=== PATIENT | female | born 1955 | race Caucasian/White ===

== ENCOUNTER 2024-06-18 15:28 | Emergency (ER) | payer MEDICARE, OTHER ==
[2024-06-18 17:11] VITALS: TEMP 97.7
[2024-06-18 19:05] LABS: Appearance Clear (Clear); Bacteria None Seen /HPF (None Seen); Bilirubin Negative (Negative); Blood Negative (Negative); Epithelial Cells None Seen /HPF (None Seen); Glucose, Urine Negative (Negative); Hyaline Casts NONE SEEN /LPF (0-2); Ketones Negative (Negative); Leukocyte Esterase Trace (Negative); Nitrite Negative (Negative); Protein,Urine Dip Negative (Negative); RBC 0-2 /HPF (0-5); Urobilinogen 0.2 mg/dL (0.2); WBC 0-2 /HPF (0-5)
[2024-06-18 19:07] LABS: ADD URINE CULTURE? NO (NO)
--- NOTE | 2024-06-18 19:15 | ERPHSYRPT ---
- History of Present Illness Time Seen by Provider: 06/18/24 18:30 Source: patient Exam Limitations: no limitations Patient Subjective Stated Complaint: PT HERE FOR GROIN PAIN TO RIGHT GROIN AREA, SHE STATES IT RADIATES FROM LOWER BACK TO GROIN, HAS CHRONIC BACK PAIN AND WAS SEEN AT [facility] TUESDAY FOR SAME THING Triage Nursing Assessment: PT ARRIVED PER WC, ABLE TO UNDRESS AND WALK TO CART, ALERT, RESP EASY, SKIN W/D/P, MOVES ALL EXT WELL, NO EDEMA NOTED, Physician History: This is a 68-year-old white female patient brought into the emergency department by private vehicle escorted by her spouse secondary to sciatica pain on the right side and associated sharp stabbing right groin pain. Patient had this similar symptoms a few days ago and was seen at [facility] and sent home. Patient has a primary physician who is Dr. Louis He out of [facility]. She does not see a pain specialist. She does have neurology appointment on 06/22/2024. Patient does take [place] 10/325 chronically for known chronic back pain and chronic recurring sciatica. Her last dose was 6 hours prior to arrival. The patient did not suffer any acute fall or traumatic injury. Patient has no chest pain and she has no shortness of breath. Timing/Duration: week(s) (1), worse Method of Injury: bending, twisted, turning Quality: sharp, stabbing Back Pain Location: lumbar spine Back Pain Radiation: upper legs (Right side posteriorly) Severity of Pain-Max: moderate Severity of Pain-Current: moderate Modifying Factors: Improves With: movement Associated Symptoms: denies symptoms, lower back pain, muscle spasms, No urinary incontinence, No problems urinating, No numbness in legs/feet, No sensory/motor loss Previous symptoms: same symptoms as today, recently seen, recently treated Allergies/Adverse Reactions: adhesive Allergy (Verified 06/18/24 17:32) ceftriaxone Allergy (Verified 06/18/24 17:32) cilostazol Allergy (Verified 06/18/24 17:32) codeine Allergy (Verified 06/18/24 17:32) dapagliflozin [From Farga] Allergy (Verified 06/18/24 17:32) duloxetine Allergy (Verified 06/18/24 17:32) Iodinated Contrast Media Allergy (Verified 06/18/24 17:32) iohexol Allergy (Verified 06/18/24 17:32) meperidine [From Demerol] Allergy (Verified 06/18/24 17:32) propoxyphene Allergy (Verified 06/18/24 17:32) Sulfa (Sulfonamide Antibiotics) Allergy (Verified 06/18/24 17:32) topiramate Allergy (Verified 06/18/24 17:32) Hx Tetanus, Diphtheria Vaccination/Date Given: No Hx Influenza Vaccination/Date Given: No Hx Pneumococcal Vaccination/Date Given: Yes Immunizations Up to Date: Yes Travel Risk - International Travel Have you traveled outside of the country in past 3 weeks: No - Emerging Infectious Disease Are you exhibiting symptoms associated with any current EIDs: No - Review of Systems Constitutional: No Symptoms Eyes: No Symptoms Ears, Nose, & Throat: No Symptoms Respiratory: No Symptoms Cardiac: No Symptoms Abdominal/Gastrointestinal: No Symptoms Genitourinary Symptoms: Other (Sharp right groin pain) Musculoskeletal: Back Pain (Right side lumbar level shooting caudally down buttock and proximal posterior right upper leg), No Fall Skin: No Symptoms Neurological: No Symptoms Psychological: No Symptoms Endocrine: No Symptoms Hematologic/Lymphatic: No Symptoms Immunological/Allergic: No Symptoms All Other Systems: Reviewed and Negative - Past Medical History Neurological History: Migraines Cardiac History: Hypertension Musculoskeletal History: Arthritis GI Medical History: Crohns Disease, GERD Psycho-Social History: Anxiety, Depression Other Medical History: CHRONIC BACK PAIN - Past Surgical History Past Surgical History: Yes Gastrointestinal: Appendectomy Female Surgical History: Hysterectomy, Section - Social History Smoking Status: Current some day smoker How long have you smoked: 1/2 Exposure to second hand smoke: Yes Drug Use: none - Social Determinants of Health Will the patient participate in the screening: Yes Do you worry about a steady place to live?: No Do you have any problems with any of the following?: No known problems In the past 12 months,have you had to go without utilities?: No Transportation Issues: No Has anyone in your support network made you feel unsafe?: No Have you or anyone in your house had to go without enough: No - Nursing Vital Signs Nursing Vital Signs: Initial Vital Signs Temperature 97.7 F 06/18/24 17:11 Pulse Rate 70 06/18/24 17:11 Respiratory Rate 18 06/18/24 17:11 Blood Pressure 155/94 06/18/24 17:11 O2 Sat by Pulse Oximetry 98 06/18/24 17:11 Pain Scale Pain Intensity [Right] 8 Pain Intensity 9 - Physical Exam General Appearance: no apparent distress, alert, anxiety Eye Exam: PERRL/EOMI, eyes nml inspection Ears, Nose, Throat Exam: normal ENT inspection, moist mucous membranes Neck Exam: normal inspection, non-tender, supple, full range of motion Respiratory Exam: normal breath sounds, lungs clear, No chest tenderness, No respiratory distress Cardiovascular Exam: regular rate/rhythm, normal heart sounds, normal peripheral pulses Gastrointestinal Exam: soft, normal bowel sounds, No tenderness Pelvic Exam: other (Right groin localized tenderness. No inguinal hernia) Rectal Exam: not done Back Exam: normal inspection, normal range of motion, CVA tenderness, decreased range of motion, muscle spasm, No vertebral tenderness Extremity Exam: normal inspection, normal range of motion, pelvis stable Neurologic Exam: alert, oriented x 3, cooperative, medical coding auditor II-XII nml as tested, normal mood/affect, nml cerebellar function, sensation nml Skin Exam: normal color, warm, dry Lymphatic Exam: No adenopathy SpO2 Interpretation: normal SpO2: 98 O2 Delivery: Room Air Ordered Tests: Active Orders 24 hr Category Date Time Status ABDOMEN AND PELVIS W/0 CONTRAS [CT] Stat Exams 06/18/24 18:55 Taken UA W/RFX UR CULTURE Stat Lab 06/18/24 18:30 Completed Medication Summary Discontinued Medications Generic Name Dose Route Start Last Admin Trade Name Gregoryq PRN Reason Stop Dose Admin Methylprednisolone Sodium 0 mg 06/18/24 18:57 06/18/24 19:59 Succinate 125 mg/ Sterile IM 06/18/24 18:58 125 mg Water 2 ml STAT ONE Administration Hydromorphone HCl 0.5 mg 06/18/24 18:56 06/18/24 19:54 Hydromorphone 1 Mg/1ml Inj IM 06/18/24 18:57 0.5 mg STAT ONE Administration Hydromorphone HCl Confirm 06/18/24 19:45 Hydromorphone 1 Mg/1ml Inj Administered 06/18/24 19:46 Dose 1 mg .ROUTE .STK-MED ONE Methylprednisolone Sodium Succinate Confirm 06/18/24 19:45 Methylprednis Sod Succ 125 Mg/2 Ml Vial Administered 06/18/24 19:46 Dose 125 mg .ROUTE .STK-MED ONE Ondansetron HCl 4 mg 06/18/24 18:58 06/18/24 19:52 Zofran 4 Mg/Udtablet Orally Disintegrating PO 06/18/24 18:59 4 mg STAT ONE Administration Ondansetron HCl Confirm 06/18/24 19:45 Zofran 4 Mg/Udtablet Orally Disintegrating Administered 06/18/24 19:46 Dose 4 mg .ROUTE .STK-MED ONE Orphenadrine Citrate 60 mg 06/18/24 18:57 06/18/24 19:57 Orphenadrine Citrate 60 Mg/2 Ml Vial IM 06/18/24 18:58 60 mg STAT ONE Administration Orphenadrine Citrate Confirm 06/18/24 19:45 Orphenadrine Citrate 60 Mg/2 Ml Vial Administered 06/18/24 19:46 Dose 60 mg .ROUTE .STK-MED ONE Sterile Water Confirm 06/18/24 19:45 Water For Injection,Sterile 10 Ml Vial Administered 06/18/24 19:46 Dose 10 ml IJ .STK-MED ONE Lab/Rad Data: Laboratory Results 06/18/24 Range/Units 18:30 Urine Color Yellow (Yellow) Urine Appearance Clear (Clear) Urine pH 6.0 (4.6-8.0) Ur Specific [place] 1.010 (1.005-1.030) Urine Protein Negative (Negative) Urine Glucose (UA) Negative (Negative) mg/dL Urine Ketones Negative (Negative) Urine Blood Negative (Negative) Urine Nitrite Negative (Negative) Urine Bilirubin Negative (Negative) Urine Urobilinogen 0.2 (0.2) mg/dL Ur Leukocyte Esterase Trace A (Negative) U Hyaline Cast (Auto) NONE SEEN (0-2) /LPF Urine Microscopic RBC 0-2 (0-5) /HPF Urine Microscopic WBC 0-2 (0-5) /HPF Ur Epithelial Cells None Seen (None Seen) /HPF Urine Bacteria None Seen (None Seen) /HPF Urine Culture Reflexed NO (NO) - Progress Progress: improved, pain not gone completely Progress Note: 06/18/24 19:12 My medical decision in the assignment of moderate complexity to this patient's medical issue today is based on review of the patient's past medical history, review of patient medication list, reviewed patient drug allergy list, history present illness and physical findings on examination. The workup in this patient will include urinalysis, CT scan of the abdomen pelvis without contrast. Differential diagnosis includes but is not limited to sciatica, urinary tract infection, acute lumbar spine or pelvic fracture, acute exacerbation of chronic low back pain 06/18/24 21:07 I interpreted the patient's laboratory data results. There is no evidence of any acute, emergent medical issue based on the laboratory data results. CT scan of the head without contrast was interpreted by the radiologist and I reviewed the impression. The impression states no comparison films available. Mild diffuse fecal stasis. Moderate L2-L4 degenerative disc disease. No mention of any bony fractures or inguinal hernias. 06/18/24 21:09 The patient complained about itchiness in the injection site of the steroid injection. No evidence of any cellulitis, infection or rash. She also complained of eyelids seem to be drooping. I performed a neurologic examination. There is nothing focal and eyelids bilaterally are symmetric. Counseled pt/family regarding: lab results, diagnosis, need for follow-up, rad results Medical Desision Making - Independent Historian Additional History obtained from: Spouse - Diagnostic Testing Diagnostic test were ordered, analyzed, and reviewed by me: Yes Radiological Interpretation: Reviewed by me, Teleradiologist Report - Risk of complications The pt has a mod risk of morbidity or mortality based on: Need for prescription drug management - Departure Departure Disposition: Home Clinical Impression: Sciatica, Right groin pain Condition: Stable Critical Care Time: No Referrals: LOUIS HE MD [Primary Care Provider] - Follow up/PCP as directed Additional Instructions: Continue your [place] medication as prescribed. Call your primary care provider tomorrow morning, 06/19/2024 to make arrangements for follow-up appointment to be seen in next 3 to 5 days. Keep your appointment with your neurologist. Take your other medications as prescribed. Prescriptions: Prednisone 10 mg [Deltasone 10 mg] 10 mg PO TID #12 tablet Orphenadrine Citrate 100 mg [Norflex 100 MG Tablet] 100 mg PO BID #6 tab
[2024-06-18] MEDS ORDERED: ZOFRAN ODT 4 MG ONE (19:45)
[2024-06-18] MEDS ORDERED: Norflex 60 MG/2 ML ONE (19:45)
[2024-06-18] MEDS ORDERED: Sterile H2O 10 ml IJ ONE (19:45)
[2024-06-18] MEDS ORDERED: solu-MEDROL ONE (19:45)
[2024-06-18] MEDS ORDERED: Hydromorphone 1 mg/ml Injection ONE (19:45)
[2024-06-18] MEDS: ZOFRAN ODT 4 MG PO ONE (19:52)
[2024-06-18] MEDS: Hydromorphone 1 mg/ml Injection IM ONE (19:54)
[2024-06-18] MEDS: Norflex 60 MG/2 ML IM ONE (19:57)
[2024-06-18] MEDS: solu-MEDROL 125 MG, Sterile H2O 10 ml 2 ML IM ONE (19:59)
[2024-06-18 20:04] VITALS: RESP 22
[2024-06-18 21:16] VITALS: O2SAT 98
[2024-06-18 21:38] VITALS: BP 144/76; PULSE 76
--- NOTE | 2024-06-19 08:41 | XRAY ---
Indication: Right lower quadrant/right groin pain. Multiple contiguous axial images obtained through the abdomen and pelvis without contrast. Comparison: None Lung bases clear. Heart not enlarged. Noncontrasted stomach and bowel loops appear nonobstructed. Mild diffuse scattered colonic fecal debris. Appendectomy and hysterectomy reported. No free fluid/air. Remaining liver, gallbladder, pancreas, spleen, adrenal glands, kidneys, ureters, and bladder are unremarkable for noncontrast exam. Minimal aortic calcifications without AAA. 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 No ventral or inguinal hernias. Impression: 1. Mild diffuse fecal stasis without obstruction. 2. Chronic findings including arteriosclerotic disease and chronic bony findings. 3. Remaining CT abdomen/pelvis without contrast exam is negative.
== END 2024-06-18 21:38 | disposition home or self-care (01) ==
LOC: ED 15:28
DX: M54.31 Sciatica, right side (principal); R10.2 Pelvic and perineal pain; I10 Essential (primary) hypertension; Z79.891 Long term (current) use of opiate analgesic; Z79.52 Long term (current) use of systemic steroids; Z79.899 Other long term (current) drug therapy; Z72.0 Tobacco use
CPT/HCPCS: 74176; 81001; 96372; 99284; J1170; J2360; J2919; Q0162

== ENCOUNTER 2024-07-03 17:43 | Emergency (ER) | payer MEDICARE, OTHER ==
--- NOTE | 2024-07-03 19:14 | ERPHSYRPT ---
- History of Present Illness Time Seen by Provider: 07/03/24 19:11 Source: patient Exam Limitations: no limitations Physician History: 68-year-old female history of total hysterectomy presents to emergency department for evaluation of right lower quadrant pain. Patient states the pain radiates into her groin. She also feels it in her back. Patient has a history of back pain and sciatica. Patient states the pain tends to move around from her back to her flank to her groin. No trauma no fever. No change in bowel bladder function. Symptoms are mild to moderate in intensity. Palpation to the right lower quadrant reproduces pain. Pain improved with rest. Patient voices no other complaints or concerns at this time. Portions of this note were created with voice recognition technology. There may be grammatical, spelling, punctuation or sound alike errors Timing/Duration: today Severity: moderate Modifying Factors: Improves With: nothing Associated Symptoms: denies symptoms Allergies/Adverse Reactions: adhesive Allergy (Verified 07/03/24 18:50) ceftriaxone Allergy (Verified 07/03/24 18:50) cilostazol Allergy (Verified 07/03/24 18:50) codeine Allergy (Verified 07/03/24 18:50) dapagliflozin [From Farxiga] Allergy (Verified 07/03/24 18:50) duloxetine Allergy (Verified 07/03/24 18:50) Iodinated Contrast Media Allergy (Verified 07/03/24 18:50) iohexol Allergy (Verified 07/03/24 18:50) meperidine [From Demerol] Allergy (Verified 07/03/24 18:50) propoxyphene Allergy (Verified 07/03/24 18:50) Sulfa (Sulfonamide Antibiotics) Allergy (Verified 07/03/24 18:50) topiramate Allergy (Verified 07/03/24 18:50) Hx Tetanus, Diphtheria Vaccination/Date Given: No Hx Influenza Vaccination/Date Given: No Hx Pneumococcal Vaccination/Date Given: Yes Travel Risk - Emerging Infectious Disease Are you exhibiting symptoms associated with any current EIDs: No - Review of Systems Constitutional: No Symptoms, No Fever, No Chills Eyes: No Symptoms Ears, Nose, & Throat: No Symptoms Respiratory: No Symptoms, No Cough, No Dyspnea Cardiac: No Symptoms, No Chest Pain, No Edema, No Syncope Abdominal/Gastrointestinal: No Symptoms, No Abdominal Pain, No Nausea, No Vomiting, No Diarrhea Genitourinary Symptoms: No Symptoms, No Dysuria Musculoskeletal: No Symptoms, No Back Pain, No Neck Pain Skin: No Symptoms, No Rash Neurological: No Symptoms, No Dizziness, No Focal Weakness, No Sensory Changes Psychological: No Symptoms Endocrine: No Symptoms Hematologic/Lymphatic: No Symptoms Immunological/Allergic: No Symptoms All Other Systems: Reviewed and Negative - Past Medical History Neurological History: Migraines Cardiac History: Hypertension Musculoskeletal History: Arthritis GI Medical History: Crohns Disease, GERD Psycho-Social History: Anxiety, Depression Other Medical History: CHRONIC BACK PAIN - Past Surgical History Past Surgical History: Yes Gastrointestinal: Appendectomy Female Surgical History: Hysterectomy, Section - Social History Smoking Status: Current some day smoker How long have you smoked: 1/2 Exposure to second hand smoke: Yes Drug Use: none - Social Determinants of Health Will the patient participate in the screening: Yes Do you worry about a steady place to live?: No In the past 12 months,have you had to go without utilities?: No Transportation Issues: No Has anyone in your support network made you feel unsafe?: No Have you or anyone in your house had to go without enough: No - Nursing Vital Signs Nursing Vital Signs: Initial Vital Signs Temperature 98.1 F 07/03/24 18:45 Pulse Rate 73 07/03/24 18:45 Respiratory Rate 18 07/03/24 18:45 Blood Pressure 178/71 07/03/24 18:45 O2 Sat by Pulse Oximetry 96 07/03/24 18:45 Pain Scale Pain Intensity 7 - Physical Exam General Appearance: no apparent distress, alert Eye Exam: PERRL/EOMI, eyes nml inspection Ears, Nose, Throat Exam: normal ENT inspection, pharynx normal, moist mucous membranes Neck Exam: normal inspection, full range of motion Respiratory Exam: normal breath sounds, lungs clear, airway intact, No respiratory distress Cardiovascular Exam: regular rate/rhythm, normal heart sounds, normal peripheral pulses Gastrointestinal/Abdomen Exam: soft, normal bowel sounds, No tenderness, No mass Back Exam: normal inspection, normal range of motion, other (Tenderness to palpation lumbar spine), No CVA tenderness, No vertebral tenderness Extremity Exam: normal inspection, normal range of motion, pelvis stable Neurologic Exam: alert, oriented x 3, cooperative, normal mood/affect, sensation nml, No motor deficits Skin Exam: normal color, warm, dry, No rash Lymphatic Exam: No adenopathy SpO2 Interpretation: normal SpO2: 96 O2 Delivery: Room Air - Course Nursing assessment & vital signs reviewed: Yes - CT Exams Abdomen/Pelvis CT Interpretation: Tele-radiologist Report (Moderate diffuse fecal stasis, degenerative disc disease mild dextroscoliosis) Ordered Tests: Active Orders 24 hr Category Date Time Status ABDOMEN AND PELVIS W/0 CONTRAS [CT] Stat Exams 07/03/24 19:09 Taken RECONSTRUCTION [CT] Stat Exams 07/03/24 19:10 Taken CBC W DIFF Stat Lab 07/03/24 19:50 Completed CMP Stat Lab 07/03/24 19:50 Completed CULTURE,URINE Stat Lab 07/03/24 19:09 Received TROPONIN Q4H Lab 07/03/24 19:50 Completed TROPONIN Q4H Lab 07/03/24 23:46 Completed TROPONIN Q4H Lab 07/04/24 03:15 Ordered UA W/RFX UR CULTURE Stat Lab 07/03/24 19:09 Completed Medication Summary Discontinued Medications Generic Name Dose Route Start Last Admin Trade Name Kathy PRN Reason Stop Dose Admin Acetaminophen 650 mg 07/03/24 23:31 07/03/24 23:35 Acetaminophen 325 Mg Tablet PO 07/03/24 23:32 650 mg STAT STA Administration Acetaminophen Confirm 07/03/24 23:34 Acetaminophen 325 Mg Tablet Administered 07/03/24 23:35 Dose 650 mg .ROUTE .STK-MED ONE Acetaminophen Confirm 07/03/24 23:40 Acetaminophen 325 Mg Tablet Administered 07/03/24 23:41 Dose 650 mg .ROUTE .STK-MED ONE Ketorolac Tromethamine 30 mg 07/03/24 22:04 07/03/24 22:33 Ketorolac Tromethamine 30 Mg/Ml Inj IV 07/03/24 22:05 Not Given STAT ONE Ketorolac Tromethamine Confirm 07/03/24 22:12 Ketorolac Tromethamine 30 Mg/Ml Inj Administered 07/03/24 22:13 Dose 30 mg .ROUTE .STK-MED ONE Ketorolac Tromethamine 30 mg 07/03/24 22:17 07/03/24 22:21 Ketorolac Tromethamine 30 Mg/Ml Inj IM 07/03/24 22:18 30 mg STAT ONE Administration Morphine Sulfate 4 mg 07/03/24 20:57 07/03/24 21:03 Morphine Sulfate 4 Mg/Ml Injection IV 07/03/24 20:58 4 mg STAT ONE Administration Morphine Sulfate Confirm 07/03/24 21:02 Morphine Sulfate 4 Mg/Ml Injection Administered 07/03/24 21:03 Dose 4 mg .ROUTE .STK-MED ONE Morphine Sulfate 2 mg 07/03/24 23:22 07/03/24 23:33 Morphine Sulfate 2 Mg/Ml Inj IV 07/03/24 23:23 Not Given STAT ONE Nitrofurantoin Macrocrystals 100 mg 07/03/24 20:36 07/03/24 20:45 Nitrofurantoin Macro 100 Mg Capsule PO 07/03/24 20:37 100 mg STAT ONE Administration Nitrofurantoin Macrocrystals Confirm 07/03/24 20:44 Nitrofurantoin Macro 100 Mg Capsule Administered 07/03/24 20:45 Dose 100 mg .ROUTE .STK-MED ONE Ondansetron HCl 4 mg 07/03/24 20:59 07/03/24 21:03 Ondansetron Hcl 4 Mg/2 Ml Vial IV 07/03/24 21:00 4 mg STAT ONE Administration Ondansetron HCl Confirm 07/03/24 21:02 Ondansetron Hcl 4 Mg/2 Ml Vial Administered 07/03/24 21:03 Dose 4 mg .ROUTE .STK-MED ONE Lab/Rad Data: Laboratory Result Diagrams 07/03/24 19:50 07/03/24 19:50 Laboratory Results 07/03/24 07/03/24 07/03/24 Range/Units 23:46 19:50 19:50 WBC (3.98-10.04) x10^3/uL RBC (3.93-5.22) x10^6/uL Hgb (11.2-15.7) g/dL Hct (34.1-44.9) % MCV (79.4-94.8) fL MCH (25.6-32.2) pg MCHC (32.2-35.5) g/dL RDW (11.7-14.4) % Plt Count (182-369) x10^3/uL MPV (9.4-12.3) fL Gran % (34.0-71.1) % Immature Gran % (Auto) (0.001-0.429) % Nucleat RBC Rel Count (0.00-0.2) % Eos # (Auto) (0.04-0.36) x10^3/uL Immature Gran # (Auto) (0.001-0.031) x10^3u/L Absolute Lymphs (auto) (1.18-3.74) x10^3/uL Absolute Monos (auto) (0.24-0.86) x10^3/uL Absolute Nucleated RBC (0.00-0.012) x10^3u/L Lymphocytes % (19.3-51.7) % Monocytes % (4.7-12.5) % Eosinophils % (0.7-5.8) % Basophils % (0.1-1.2) % Absolute Granulocytes (1.56-6.13) x10^3/uL Basophils # (0.01-0.08) x10^3/uL Sodium 144 (135-145) mmol/L Potassium 3.5 (3.5-5.1) mmol/L Chloride 104 (98-107) mmol/L Carbon Dioxide 33 H (22-30) mmol/L Anion Gap 9.7 (5-15) MEQ/L BUN 17 (7-17) mg/dL Creatinine 0.57 (0.52-1.04) mg/dL Estimated GFR 100.2 ML/MIN Glucose 113 H (74-106) mg/dL Calcium 9.3 (8.4-10.2) mg/dL Total Bilirubin 0.30 (0.2-1.3) mg/dL AST 28 (14-36) U/L ALT 26 (0-35) U/L Alkaline Phosphatase 47 (38-126) U/L Troponin I < 0.012 < 0.012 (0.000-0.033) ng/mL Serum Total Protein 7.1 (6.3-8.2) g/dL Albumin 4.2 (3.5-5.0) g/dL Urine Color (Yellow) Urine Appearance (Clear) Urine pH (4.6-8.0) Ur Specific [place] (1.005-1.030) Urine Protein (Negative) Urine Glucose (UA) (Negative) mg/dL Urine Ketones (Negative) Urine Blood (Negative) Urine Nitrite (Negative) Urine Bilirubin (Negative) Urine Urobilinogen (0.2) mg/dL Ur Leukocyte Esterase (Negative) U Hyaline Cast (Auto) (0-2) /LPF Urine Microscopic RBC (0-5) /HPF Urine Microscopic WBC (0-5) /HPF Ur Epithelial Cells (None Seen) /HPF Urine Bacteria (None Seen) /HPF Urine Culture Reflexed (NO) 07/03/24 07/03/24 Range/Units 19:50 19:09 WBC 10.8 H (3.98-10.04) x10^3/uL RBC 4.10 (3.93-5.22) x10^6/uL Hgb 12.8 (11.2-15.7) g/dL Hct 41.3 (34.1-44.9) % MCV 100.7 H (79.4-94.8) fL MCH 31.2 (25.6-32.2) pg MCHC 31.0 L (32.2-35.5) g/dL RDW 14.1 (11.7-14.4) % Plt Count 304 (182-369) x10^3/uL MPV 8.8 L (9.4-12.3) fL Gran % 45.4 (34.0-71.1) % Immature Gran % (Auto) 0.6 H (0.001-0.429) % Nucleat RBC Rel Count 0.0 (0.00-0.2) % Eos # (Auto) 0.17 (0.04-0.36) x10^3/uL Immature Gran # (Auto) 0.06 H (0.001-0.031) x10^3u/L Absolute Lymphs (auto) 4.70 H (1.18-3.74) x10^3/uL Absolute Monos (auto) 0.90 H (0.24-0.86) x10^3/uL Absolute Nucleated RBC 0.00 (0.00-0.012) x10^3u/L Lymphocytes % 43.6 (19.3-51.7) % Monocytes % 8.3 (4.7-12.5) % Eosinophils % 1.6 (0.7-5.8) % Basophils % 0.5 (0.1-1.2) % Absolute Granulocytes 4.91 (1.56-6.13) x10^3/uL Basophils # 0.05 (0.01-0.08) x10^3/uL Sodium (135-145) mmol/L Potassium (3.5-5.1) mmol/L Chloride (98-107) mmol/L Carbon Dioxide (22-30) mmol/L Anion Gap (5-15) MEQ/L BUN (7-17) mg/dL Creatinine (0.52-1.04) mg/dL Estimated GFR ML/MIN Glucose (74-106) mg/dL Calcium (8.4-10.2) mg/dL Total Bilirubin (0.2-1.3) mg/dL AST (14-36) U/L ALT (0-35) U/L Alkaline Phosphatase (38-126) U/L Troponin I (0.000-0.033) ng/mL Serum Total Protein (6.3-8.2) g/dL Albumin (3.5-5.0) g/dL Urine Color Yellow (Yellow) Urine Appearance Clear (Clear) Urine pH 6.5 (4.6-8.0) Ur Specific [place] 1.015 (1.005-1.030) Urine Protein Negative (Negative) Urine Glucose (UA) Negative (Negative) mg/dL Urine Ketones Negative (Negative) Urine Blood Negative (Negative) Urine Nitrite Negative (Negative) Urine Bilirubin Negative (Negative) Urine Urobilinogen 0.2 (0.2) mg/dL Ur Leukocyte Esterase Moderate A (Negative) U Hyaline Cast (Auto) NONE SEEN (0-2) /LPF Urine Microscopic RBC 0-2 (0-5) /HPF Urine Microscopic WBC 11-20 A (0-5) /HPF Ur Epithelial Cells Rare (None Seen) /HPF Urine Bacteria None Seen (None Seen) /HPF Urine Culture Reflexed YES (NO) - Progress Progress: improved Progress Note: 68-year-old female presents to our ED for evaluation of right lower abdominal pa in and back pain. Physical exam reveals right lower quadrant tenderness. Patient advised that she has had a total hysterectomy as well as an appendectomy. Pain described as an ache that is localized. No radiation. Physical exam reveals tenderness to palpation at the right lower quadrant and tenderness to palpation at the lumbar spine. No trauma no fever. CT abdomen pelvis negative for acute intra-abdominal pathology. UA reveals urinary tract infection. Pain medication administered. Pain resolved. Patient requesting discharge. No indication for further workup. Patient has a follow-up appointment scheduled with her primary care doctor this week. at bedside. They voiced no other complaints concerns at this time. Portions of this note were created with voice recognition technology. There may be grammatical, spelling, punctuation or sound alike errors Complexity problem addressed is moderate acute complicated. No critical care time. Complex of data reviewed and analyzed is moderate. Test ordered test reviewed results analyzed and correlated clinically with history and physical exam. Risk of complication and or risk of morbidity/mortality of patient manage ment is moderate. A prescription for Macrobid forwarded to patient's pharmacy. Vital stable. Time spent to discharge patient approximately 20 minutes. Plan of care established for shared decision making. No social determinants of health present to impede follow-up. Portions of this note were created with voice recognition technology. There may be grammatical, spelling, punctuation or sound alike errors 07/04/24 01:48 Counseled pt/family regarding: lab results, diagnosis, rad results - Departure Departure Disposition: Home Clinical Impression: UTI (urinary tract infection), Abdominal pain, Back pain, Fecal stasis, Degenerative disc disease Condition: Stable Critical Care Time: No Referrals: ADRIENNE RICO MD [Primary Care Provider] - Follow up/PCP as directed Instructions: Abdominal Pain, Adult ED, Urinary Tract Infection, Adult ED Additional Instructions: Discharge/Care Plan MARILYN LEWIS was seen on 07/04/24 in the Emergency Room. The patient was counseled regarding Diagnosis,Lab results, Imaging studies, need for follow up and when to return to the Emergency Room. Prescriptions given: Discharge Note I have spoken with the patient and/or caregivers. I have explained the patient's condition, diagnosis and treatment plan based on the information available to me at this time. I have answered the patient's and/or caregiver's questions and addressed any concerns. The patient and/or caregivers have as good understanding of the patient's diagnosis, condition and treatment plan as can be expected at this point. The vital signs have been stable. The patient's condition is stable and appropriate for discharge from the emergency department. The patient will pursue further outpatient evaluation with the primary care physician or other designated or consulting physician as outlined in the discharge instructions. The patient and/or caregivers are agreeable to this plan of care and follow-up instructions have been explained in detail. The patient and/or caregivers have received these instruction. The patient/and or caregivers are aware that any significant change in condition or worsening of symptoms should prompt an immediate return to this or the closest emergency department or call 911. Prescriptions: Nitrofurantoin Macro 100 mg [Macrobid 100MG Capsule] 100 mg PO BID 7 Days #14 cap
[2024-07-03 19:19] VITALS: TEMP 98.1
[2024-07-03 19:36] LABS: Appearance Clear (Clear); Bacteria None Seen /HPF (None Seen); Bilirubin Negative (Negative); Blood Negative (Negative); Epithelial Cells Rare /HPF (None Seen); Glucose, Urine Negative (Negative); Hyaline Casts NONE SEEN /LPF (0-2); Ketones Negative (Negative); Leukocyte Esterase Moderate (Negative); Nitrite Negative (Negative); Ph 6.5 (4.6-8.0); Protein,Urine Dip Negative (Negative); RBC 0-2 /HPF (0-5); Specific Gravity 1.015 (1.005-1.030); Urobilinogen 0.2 mg/dL (0.2)
[2024-07-03 19:55] LABS: Absolute Neutrophil Ct (ANC) 4.91 x10^3/uL (1.56-6.13); BASOPHIL % 0.5 % (0.1-1.2); Basophil (Absolute #) 0.05 x10^3/uL (0.01-0.08); Eosinophil % 1.6 % (0.7-5.8); Eosinophil (Absolute #) 0.17 x10^3/uL (0.04-0.36); Hematocrit 41.3 % (34.1-44.9); Hemoglobin 12.8 g/dL (11.2-15.7); IMMATURE GRAN # 0.06 x10^3u/L (0.001-0.031); IMMATURE GRAN % 0.6 % (0.001-0.429); Lymphocytes % 43.6 % (19.3-51.7); Mean Cell Volume 100.7 fL (79.4-94.8); Mean Corpuscular Hemoglobin 31.2 pg (25.6-32.2); Mean Platelet Volume 8.8 fL (9.4-12.3); Monocytes % 8.3 % (4.7-12.5); Neutrophil % 45.4 % (34.0-71.1); Platelet Count 304 x10^3/uL (182-369); Red Cell Distribution Width 14.1 % (11.7-14.4); White Blood Count 10.8 x10^3/uL (3.98-10.04)
[2024-07-03 20:11] LABS: ALBUMIN 4.2 g/dL (3.5-5.0); ANION GAP 9.7 MEQ/L (5-15); BILIRUBIN,TOTAL 0.3 mg/dL (0.2-1.3); Calcium 9.3 mg/dL (8.4-10.2); Creatinine 1 0.57 mg/dL (0.52-1.04); EST GLOMERULAR FILTRATION RATE 100.2 ML/MIN; Potassium 3.5 mmol/L (3.5-5.1); Total Protein 7.1 g/dL (6.3-8.2)
[2024-07-03] MEDS ORDERED: Macrobid 100MG Capsule ONE (20:44)
[2024-07-03] MEDS: Macrobid 100MG Capsule PO ONE (20:45)
[2024-07-03] MEDS ORDERED: MORPHINE SULFATE 4 MG INJ ONE (21:02)
[2024-07-03] MEDS ORDERED: Zofran 4 MG/2 ML VIAL ONE (21:02)
[2024-07-03] MEDS: Zofran 4 MG/2 ML VIAL IV ONE (21:03)
[2024-07-03] MEDS: MORPHINE SULFATE 4 MG INJ IV ONE (21:03)
[2024-07-03] MEDS ORDERED: TORAdol 30 mg Injection ONE (22:12)
[2024-07-03 22:14] VITALS: RESP 16
[2024-07-03] MEDS: TORAdol 30 mg Injection IM ONE (22:21)
[2024-07-03] MEDS: TORAdol 30 mg Injection IV ONE (22:33)
[2024-07-03] MEDS: MORPHINE SULFATE 2 MG INJ IV ONE (23:33)
[2024-07-03] MEDS ORDERED: TYLENOL 325 MG ONE ×2 (23:34→23:40)
[2024-07-03] MEDS: TYLENOL 325 MG PO STA (23:35)
[2024-07-04 00:27] VITALS: PULSE 69
[2024-07-04 01:05] VITALS: BP 142/74; O2SAT 96
--- NOTE | 2024-07-04 08:44 | XRAY ---
Indication: Right groin pain radiating lower back. Multiple contiguous axial images obtained through the abdomen and pelvis without contrast. Comparison: June 18, 2024 Lung bases remain clear. Heart not enlarged. Stomach is now distended with food. Gallbladder contracted without gallstones. Noncontrasted stomach and bowel loops appear nonobstructed. There is now moderate diffuse scattered colonic fecal debris throughout including rectum. Again appendectomy and hysterectomy reported. No free fluid/air. Remaining liver, gallbladder, pancreas, spleen, adrenal glands, kidneys, ureters, and bladder are unremarkable for noncontrast exam. Again minimal aortic calcifications without AAA. Osseous structures intact again with osteopenia, moderate L2-L4 degenerative disc disease, mild dextrorotoscoliosis, and mild degenerative changes both hips. No ventral or inguinal hernias. Impression: 1. New diffuse fecal stasis. 2. Again chronic findings including arteriosclerotic disease and chronic bony findings. 3. Remaining CT abdomen/pelvis without contrast exam continues to be negative.
--- NOTE | 2024-07-04 08:46 | XRAY ---
Indication: Right groin pain radiating lower back. Sagittal, coronal, and axial reformatted images lumbar spine obtained using raw data from same day abdomen and pelvis without contrast exam. Comparison: CT abdomen/pelvis June 18, 2024 Osseous structures intact again with osteopenia. There remains mild L2-L4 broad-based disc bulge, vacuum disc phenomena, and bilateral degenerative facet arthropathy. No acute fracture, suspicious bony lesions, or spinal canal stenosis. Sagittal and coronal reformatted images again demonstrates L2-S1 disc space narrowing greatest L3-L4 level. Stable mild dextrorotoscoliosis. No compression fracture or subluxation. CT abdomen/pelvis reported separately. Impression: Stable osteopenia, multilevel degenerative disc disease, and dextrorotoscoliosis. No new/acute findings.
== END 2024-07-04 01:49 | disposition home or self-care (01) ==
LOC: ED 17:43
DX: N39.0 Urinary tract infection, site not specified (principal); R10.31 Right lower quadrant pain; M54.50 Low back pain, unspecified; K59.89 Other specified functional intestinal disorders; M51.369 Other intervertebral disc degeneration, lumbar region without mention of lumbar back pain or lower extremity pain; I10 Essential (primary) hypertension; Z79.899 Other long term (current) drug therapy; Z72.0 Tobacco use
CPT/HCPCS: 36415; 74176; 76376; 80053; 81001; 84484; 85025; 87077; 87086; 87186; 96372; 96374; 96375; 99284; J1885; J2270; J2405; A9270-GY

== ENCOUNTER 2024-09-05 12:39 | Day surgery (SDC) | payer MEDICARE, OTHER ==
[2024-09-05] MEDS ORDERED: Decadron 4 MG INJ IV ONE (12:40)
[2024-09-05] MEDS ORDERED: Sodium Chloride 0.9(Preservative Free) 10 ML IJ ONE (12:40)
[2024-09-05] MEDS ORDERED: DIPRIVAN 200 MG/20 ML IV ONE (14:45)
--- NOTE | 2024-09-05 18:58 | XRAY ---
Indication: Right L4-S1 transforaminal COLT. Intraoperative fluoroscopy provided for 28 seconds. 4 digital spot image submitted for interpretation demonstrates posterior needle tips projecting over the expected right L4 and L5 nerve roots. Small amount of contrast injected for needle tip placement. Correlate with intraoperative findings/report.
--- NOTE | 2024-09-05 19:23 | XRAY ---
28 seconds of fluoroscopy was used in surgery for a right L4-S1 transforaminal COLT.
== END 2024-09-05 15:20 | disposition home or self-care (01) ==
LOC: SDC-PAIN 12:39
PROVIDERS: ATTEND Psychiatry & Neurology Pain Medicine
DX: M54.16 Radiculopathy, lumbar region (principal)
CPT/HCPCS: 64483; 64484; 72100; 77003; J1100; J1642; J2704; Q9966